=== PATIENT | male | born 1970 | race Two or more races ===

== ENCOUNTER 2017-05-18 08:42 | Emergency (ER) | payer MEDICAID ==
[~2017-05-18] VITALS: Ht 175.3 cm; Wt 80.0 kg
[2017-05-18] MEDS ORDERED: KETOROLAC 60MG/2ML VIAL IM ONE (12:30)
[2017-05-18 12:41] VITALS: BP 118/74
== END 2017-05-18 13:21 | disposition home or self-care (01) ==
LOC: ER 10:52
DX: G89.29 Other chronic pain (principal); M54.9 Dorsalgia, unspecified; F17.210 Nicotine dependence, cigarettes, uncomplicated
CPT/HCPCS: 96372; 99283; J1885; Z7610

== ENCOUNTER 2017-05-25 06:04 | Emergency (ER) | payer MEDICAID ==
[~2017-05-25] VITALS: Ht 188 cm; Wt 74.0 kg
[2017-05-25] MEDS ORDERED: IBUPROFEN 400MG TABLET PO ONE (11:00)
[2017-05-25] MEDS ORDERED: ACETAMINOPHEN 325MG TABLET PO ONE (11:00)
[2017-05-25 12:10] VITALS: BP 124/85
== END 2017-05-25 12:08 | disposition home or self-care (01) ==
LOC: ER 07:20
DX: M54.5 Low back pain (principal); F17.210 Nicotine dependence, cigarettes, uncomplicated
CPT/HCPCS: 99283

== ENCOUNTER 2017-12-06 16:41 | Emergency (ER) | payer MEDICAID ==
[~2017-12-06] VITALS: Ht 188 cm; Wt 74.0 kg
[2017-12-06] MEDS ORDERED: IBUPROFEN 800MG TABLET PO ONE (19:30)
[2017-12-06 20:40] VITALS: BP 118/85
== END 2017-12-06 20:47 | disposition home or self-care (01) ==
LOC: ER 17:06
DX: M54.5 Low back pain (principal); G89.29 Other chronic pain; M62.838 Other muscle spasm; Z87.828 Personal history of other (healed) physical injury and trauma; F17.210 Nicotine dependence, cigarettes, uncomplicated
CPT/HCPCS: 72100; 99284

== ENCOUNTER 2017-12-13 18:49 | Emergency (ER) | payer MEDICAID ==
[~2017-12-13] VITALS: Ht 188 cm; Wt 74.0 kg
[2017-12-13 19:55] VITALS: BP 120/86
== END 2017-12-14 | disposition left against medical advice (07) ==
LOC: ER 21:12
DX: M54.5 Low back pain (principal); G89.29 Other chronic pain
CPT/HCPCS: 99281

== ENCOUNTER 2018-02-03 11:14 | Emergency (ER) | payer MEDICAID ==
[~2018-02-03] VITALS: Ht 188 cm; Wt 80.0 kg
[2018-02-03] MEDS ORDERED: KETOROLAC 60MG/2ML VIAL IM ONE (11:30)
[2018-02-03] MEDS ORDERED: CYCLOBENZAPRINE 10MG TABLET PO ONE (11:30)
[2018-02-03 12:48] VITALS: BP 132/87
== END 2018-02-03 12:52 | disposition home or self-care (01) ==
LOC: ER 11:18
DX: M54.5 Low back pain (principal); F17.200 Nicotine dependence, unspecified, uncomplicated
CPT/HCPCS: 96372; 99283; J1885